=== PATIENT | female | born 1975 | race Caucasian/White ===

== ENCOUNTER 2022-11-10 16:36 | Emergency (ER) | payer OTHER ==
[2022-11-10 16:44] VITALS: BP 123/79; PULSE 105; RESP 18; TEMP 98; BMI 23.4
== END 2022-11-10 17:36 | disposition home or self-care (01) ==
LOC: JER 16:36
DX: F10.90 Alcohol use, unspecified, uncomplicated (principal)
CPT/HCPCS: 99282-25

== ENCOUNTER 2022-11-10 19:41 | Inpatient (IN) | payer OTHER ==
[2022-11-10 21:06] VITALS: BMI 23.0
[2022-11-10] MEDS ORDERED: POLYETHYLENE GLYCOL (HEALTHYLAX) 3350 17 GM PACKET PO PRN (23:07)
[2022-11-10] MEDS ORDERED: DICYCLOMINE HCL 10 MG CAPSULE PO PRN (23:07)
[2022-11-10] MEDS ORDERED: MAG HYDROX/AL HYDROX/SIMETH 30 ML UNIT-DOSE CUP PO PRN (23:07)
[2022-11-10] MEDS ORDERED: P-EPHED 60MG/TRIPROLIDI 2.5MG TABLET PO PRN (23:07)
[2022-11-10] MEDS ORDERED: BISMUTH SUBSALICYLATE 524 MG/30 ML PO PRN (23:07)
[2022-11-10] MEDS ORDERED: LOPERAMIDE HCL 2 MG CAPSULE PO PRN (23:07)
[2022-11-10] MEDS ORDERED: IBUPROFEN 400 MG TABLET (FP) PO PRN (23:07)
[2022-11-10] MEDS ORDERED: guaiFENesin 600 MG TABLET.ER (FP) PO PRN (23:07)
[2022-11-10] MEDS ORDERED: ONDANSETRON *ODT* 4 MG TABLET SL PRN (23:07)
[2022-11-10] MEDS ORDERED: ACETAMINOPHEN 325 MG TABLET (FP) PO PRN (23:07)
[2022-11-10] MEDS ORDERED: BENZOCAINE/MENTHOL (CHLORASEPTIC ) LOZENGE MM PRN (23:07)
[2022-11-10] MEDS ORDERED: NICOTINE POLACRILEX 2 MG GUM BUC PRN (23:07)
[2022-11-10] MEDS ORDERED: NICOTINE 10 MG CARTRIDGE (INHALER) IH PRN (23:07)
[2022-11-10] MEDS ORDERED: MAGNESIUM HYDROX 2400MG/30ML ORAL SUSPENSION 30 ML CUP PO PRN (23:07)
[2022-11-10] MEDS ORDERED: BENZONATATE 200 MG CAPSULE PO PRN (23:07)
[2022-11-11] MEDS: diazePAM 5 MG TABLET PO SCH ×5 (01:17→22:05)
[2022-11-11] MEDS: hydrOXYzine PAMOATE 25 MG CAPSULE (FP) PO PRN ×2 (01:25→10:13)
[2022-11-11] MEDS: PRENATAL VITAMINS W/ FOLIC ACID TABLET (FP) PO SCH (10:12)
[2022-11-11] MEDS: NICOTINE 14 MG/24 HOURS TOPICAL PATCH TD SCH (10:12)
[2022-11-11] MEDS: THIAMINE HCL 100 MG TABLET (FP) PO SCH (22:06)
[2022-11-11] MEDS: MELATONIN 5 MG TABLETS PO SCH (22:06)
[2022-11-12] MEDS: diazePAM 5 MG TABLET PO SCH ×2 (05:38→17:17)
[2022-11-12] MEDS: PRENATAL VITAMINS W/ FOLIC ACID TABLET (FP) PO SCH (10:46)
[2022-11-12] MEDS: NICOTINE 14 MG/24 HOURS TOPICAL PATCH TD SCH (10:46)
[2022-11-12] MEDS: hydrOXYzine PAMOATE 25 MG CAPSULE (FP) PO PRN ×2 (10:49→19:22)
[2022-11-12] MEDS: IBUPROFEN 600 MG TABLET (FP) PO PRN (17:19)
[2022-11-12] MEDS: MELATONIN 5 MG TABLETS PO SCH (22:17)
[2022-11-12] MEDS: THIAMINE HCL 100 MG TABLET (FP) PO SCH (22:17)
[2022-11-13] MEDS: IBUPROFEN 600 MG TABLET (FP) PO PRN (05:28)
[2022-11-13] MEDS ORDERED: diazePAM 5 MG TABLET PO ONE (06:00)
[2022-11-13] MEDS: NICOTINE 14 MG/24 HOURS TOPICAL PATCH TD SCH (10:05)
[2022-11-13] MEDS: PRENATAL VITAMINS W/ FOLIC ACID TABLET (FP) PO SCH (10:05)
[2022-11-13 12:13] LABS: HIV INTERPRETATION NEGATIVE (NEGATIVE)
[2022-11-13 13:16] VITALS: BP 147/76; PULSE 80; RESP 17; TEMP 97.3
== END 2022-11-13 13:28 | disposition home or self-care (01) | DRG 775 ==
LOC: YASAS 19:41 → Y6N 23:21
PROVIDERS: ADMIT Allergy & Immunology; ATTEND Surgery
PROC: HZ2ZZZZ Detoxification Services for Substance Abuse Treatment (ICD-10-PCS; principal; 2022-11-10)
DX: F10.230 Alcohol dependence with withdrawal, uncomplicated (principal); F17.213 Nicotine dependence, cigarettes, with withdrawal; M25.671 Stiffness of right ankle, not elsewhere classified; M25.471 Effusion, right ankle; Z86.59 Personal history of other mental and behavioral disorders; Z28.310 Unvaccinated for COVID-19; Z28.9 Immunization not carried out for unspecified reason
CPT/HCPCS: 36415; 87389; 87635